=== PATIENT | female | born 1995 | race Caucasian/White ===

== ENCOUNTER 2021-05-30 17:26 | Emergency (ER) | payer SELFPAY ==
[2021-05-30 17:57] VITALS: PULSE 89; RESP 16; TEMP 36.9; O2SAT 100; BMI 32.9
--- NOTE | 2021-05-30 18:27 | ED.ABDPAIN ---
HPI - Abdominal Pain General Chief Complaint: Abdominal Pain Stated Complaint: Nausea Abd pain lower Rt Time Seen by Provider: 05/30/21 17:51 History of Present Illness HPI narrative: Patient is a 25-year-old healthy female who presents with right lower quadrant pain. It started around 2:00 p.m. this afternoon. It comes and goes seems to be isolated in the right lower quadrant. She denies any flank pain she has felt nauseous all day no actual vomiting. She has been able to eat without any issue she has not had any diarrhea or change in bowel movements. She denies any painful or frequent urination. She has some mild vaginal pruritus but no other abnormal vaginal discharge. No fever or chills. Prior history of ovarian cyst. Related Data Allergies Allergy/AdvReac Type Severity Reaction Status Date / Time P[place]LE Allergy Severe Anaphylaxis, Uncoded 05/16/17 11:45 burning and swelling in throat Latex Allergy Mild Acute Uncoded 05/16/17 11:45 Dermatitis Review of Systems Review of Systems Narrative: GENERAL: Denies chills, fatigue, malaise, fever, sweats, travel HEENT: Denies sinus pain, ear pain, sore throat, difficulty swallowing, neck pain RESPIRATORY: Denies dyspnea, cough, wheezing, hemoptysis, sputum. CARDIOVASCULAR: Denies chest pain, palpitations, orthopnea, edema GASTROINTESTINAL: See HPI : Denies dysuria, frequency, incontinence, hematuria, urinary retention, flank pain. MUSCULOSKELETAL: Denies weakness, joint pain, or bony pain SKIN: No rash, no erythema, no pruritus NEUROLOGIC: Denies weakness, dizziness, headache, numbness, change in speech, confusion PSYCHIATRIC: No concerning psychosocial issues. 12 point review of systems is negative except for those stated above and HPI Exam Initial Vital Signs Initial Vital Signs: Vital Signs Temperature 98.5 F 05/30/21 17:57 Pulse Rate 89 05/30/21 17:57 Respiratory Rate 16 05/30/21 17:57 Pulse Oximetry 100 05/30/21 17:57 GENERAL: Alert well-appearing 25-year-old female in no acute distress. HEENT: Head atraumatic,EOMI, pupils reactive, face symmetric, [moist] mucous membranes CARDIOVASCULAR: Regular rate and rhythm without murmurs, rubs or gallops. RESPIRATORY: Breath sounds equal bilaterally, no wheezes rales or rhonchi. ABDOMEN: Soft, mild right lower quadrant pain negative psoas sign no rust ring sign no McBurney point tenderness no Mata sign : No CVA tenderness EXTREMITIES: Normal range of motion, no clubbing or edema. Neurovascularly intact NEUROLOGICAL: Alert and oriented x4.Normal gait and speech. SKIN: Warm, dry, no laceration, no petechiae, no rashes or lesions. Course Orders Ordered: ED Orders 05/30/21 18:39 CT abdomen pelvis w con Stat 05/30/21 18:49 Complete Blood Count AUTO DIFF Stat Comprehensive Metabolic Panel Stat Lipase Stat Vital Signs Vital signs: Vital Signs - 8 hr 05/30/21 17:57 05/30/21 19:53 Temperature 98.5 F Pulse Rate 89 Respiratory Rate 16 Blood Pressure 109/63 Pulse Oximetry 100 MDM - Abdominal Pain Lab Data Result diagrams: 05/30/21 18:49 05/30/21 18:49 Labs: Lab Results 05/30/21 05/30/21 Range/Units 18:49 18:49 WBC 8.0 (4.5-11.0) X10^3/uL RBC 4.30 (4.0-5.2) X10^6/uL Hgb 12.3 (12.0-16.0) g/dL Hct 36.1 (36-46) % MCV 83.9 (80-100) fL MCH 28.6 (26-34) PG MCHC 34.1 (30-36) % RDW 14.0 (11.6-14.8) % Plt Count 341 (150-400) X10^3/uL Neut % (Auto) 69.0 (50-75) % Lymph % (Auto) 24.9 L (25-40) % Thayer % (Auto) 4.8 (3-14) % Eos % (Auto) 0.9 L (2-4) % Baso % (Auto) 0.4 (0-2) % Neut # (Auto) 5500 (2381-9584) /uL Lymph # (Auto) 2000 (0059-4998) /uL Thayer # (Auto) 400 (0-900) /uL Eos # (Auto) 100 (0-450) /uL Baso # (Auto) 0 (0-100) /uL Sodium 141 (137-145) mmol/L Potassium 3.7 (3.4-5.1) mmol/L Chloride 108 H (98-107) mmol/L Carbon Dioxide 24 (22-32) mmol/L BUN 14 (7-17) mg/dL Creatinine 0.77 (0.52-1.04) mg/dL Estimated GFR > 60 (>60) mL/min BUN/Creatinine Ratio 18.2 (6-22) Glucose 91 (70-100) mg/dL Calcium 9.1 (8.4-10.2) mg/dL Total Bilirubin 0.2 (0.2-1.3) mg/dL AST 27 (14-36) IU/L ALT 26 (<35) IU/L Alkaline Phosphatase 72 (38-126) U/L Total Protein 7.9 (6.3-8.2) g/dL Albumin 4.6 (3.5-5.0) g/dL Globulin 3.3 (1.7-4.1) g/dL Albumin/Globulin Ratio 1.4 (1.0-2.8) Lipase 57 (23-300) U/L Point of care testing: Point of Care Testing Test Results Negative Urine Dip Bedside Urine Glucose Negative Bedside Urine Bilirubin - Negative Bedside Urine Ketone - Negative Urine Specific [place] 1.015 Bedside Urine Occult Blood - Negative Bedside Urine pH 6.0 Bedside Urine Protein - Negative Bedside Urine Urobilinogen - Negative Bedside Urine Nitrite - Negative Bedside Urine Leukocytes - Negative Esterase Imaging Data CT scan - abdomen/pelvis: Radiologist's Impression: Signed Patient: Marielos Spicer MR#: [id number] : 1995 Acct:[id number] Age/Sex: 25 / F Date of Service: 05/30/21 Loc: ED Accession Number: [id number] ?? Procedure: CT abdomen pelvis w con Ordering Provider: Genesis Puente D.O. PROCEDURE:? CT ABDOMEN PELVIS W CON ? INDICATIONS:? Right lower quadrant pain ? TECHNIQUE:? After the administration of oral and IV contrast, axial sections were acquired from the lung bases to the pubic symphysis.? Coronal and sagittal reformats were performed.? For radiation dose reduction, the following was used:? automated exposure control, adjustment of mA and/or kV according to patient size. ? COMPARISON:? None. ? FINDINGS:? Image quality:? Excellent.? ? Lung bases:? Unremarkable.? ? Heart:? No significant findings. ? ? ABDOMEN: Liver:? Unremarkable.? ? Gallbladder:? Decompressed.? ? Biliary ducts:? Unremarkable.? ? Pancreas:? Unremarkable.? ? Spleen:? Unremarkable.? ? Adrenal Glands:? Unremarkable.? ? Kidneys and Ureters:? Unremarkable.? ? ? Stomach and Bowel:? Stomach, small bowel loops, and colon are unremarkable.? Normal appendix. Peritoneum:? No abnormal intraperitoneal fluid.? No free air.? ? Ventral Wall: ? No hernia.? Abdominal Nodes:? No retroperitoneal or mesenteric adenopathy by size criteria.? Vessels:? Aorta and inferior vena cava are normal in size.? ? PELVIS: Pelvic Organs:? Retroverted uterus.? ? Bladder:? Unremarkable.? ? Pelvic Nodes: No enlarged lymph nodes.? Miscellaneous: No inguinal hernias are seen. ? ? ? Bones:? No suspicious lesion. ? ? IMPRESSION:? Source of abdominal pain is not identified.? No free fluid.? Normal appendix.? ? ? Dictated by: Sukumar Ashford M.D. on 05/30/2021 at 19:30 ? ? MDM Narrative Medical decision making narrative: Patient does have some minimal lower right quadrant pain is limiting going on for a few hours. Blood work is overall reassuring. Discussed with her to CT now or conservatively watch and wait return if it worsens. At this time she chooses to do a CT now which is fortunately negative. No clear source of abdominal pain at this time. Recommend outpatient follow-up. And return if needed. Discharge Plan Departure Patient Disposition: Home Clinical Impression: Abdominal pain Instructions: DI for Abdominal Pain-Adult Activity Restrictions/Additional Instructions: *You have been diagnosed with abdominal pain *What to do: At this time no cause of abdominal pain is found. Please continue to monitor at home and return to the emergency department if it should worsen. *Continue to take medications as directed Tylenol 1000 mg every 6 hours for [id number] pain Ibuprofen 600 mg every 6 hours if needed for mild to moderate pain *Follow up with your primary care provider in 2-3 days or call [phone] *Return to ER if you should have increasing abdominal pain nausea vomiting fever or any new, worsening or concerning symptoms Referrals: Anatoliy Romero MD [Primary Care Provider] -
--- NOTE | 2021-05-30 18:39 | DI.CT.S_ITS ---
PROCEDURE: CT ABDOMEN PELVIS W CON INDICATIONS: Right lower quadrant pain TECHNIQUE: After the administration of oral and IV contrast, axial sections were acquired from the lung bases to the pubic symphysis. Coronal and sagittal reformats were performed. For radiation dose reduction, the following was used: automated exposure control, adjustment of mA and/or kV according to patient size. COMPARISON: None. FINDINGS: Image quality: Excellent. Lung bases: Unremarkable. Heart: No significant findings. ABDOMEN: Liver: Unremarkable. Gallbladder: Decompressed. Biliary ducts: Unremarkable. Pancreas: Unremarkable. Spleen: Unremarkable. Adrenal Glands: Unremarkable. Kidneys and Ureters: Unremarkable. Stomach and Bowel: Stomach, small bowel loops, and colon are unremarkable. Normal appendix. Peritoneum: No abnormal intraperitoneal fluid. No free air. Ventral Wall: No hernia. Abdominal Nodes: No retroperitoneal or mesenteric adenopathy by size criteria. Vessels: Aorta and inferior vena cava are normal in size. PELVIS: Pelvic Organs: Retroverted uterus. Bladder: Unremarkable. Pelvic Nodes: No enlarged lymph nodes. Miscellaneous: No inguinal hernias are seen. Bones: No suspicious lesion. IMPRESSION: Source of abdominal pain is not identified. No free fluid. Normal appendix. Dictated by: Sukumar Ashford M.D. on 05/30/2021 at 19:30 Approved by: Sukumar Ashford M.D. on 05/30/2021 at 19:33
[2021-05-30 18:58] LABS: Add Manual Diff / Slide Review NO; Basophils Absolute Auto 0 /uL (0-100); Basophils Percent Auto 0.4 % (0-2); Eosinophils Absolute Auto 100 /uL (0-450); Eosinophils Percent Auto 0.9 % (2-4); Hematocrit 36.1 % (36-46); Hemoglobin 12.3 g/dL (12.0-16.0); Lymphocytes Absolute Auto 2000 /uL (1100-4500); Lymphocytes Percent Auto 24.9 % (25-40); Mean Corpuscular HGB Conc 34.1 % (30-36); Mean Corpuscular Hemoglobin 28.6 PG (26-34); Mean Corpuscular Volume 83.9 fL (80-100); Monocytes Absolute Auto 400 /uL (0-900); Monocytes Percent Auto 4.8 % (3-14); Neutrophils Absolute Auto 5500 /uL (1500-7000); Platelet Count 341 X10^3/uL (150-400)
[2021-05-30 19:12] LABS: Albumin 4.6 g/dL (3.5-5.0); Albumin Globulin Ratio 1.4 (1.0-2.8); Alkaline Phosphatase 72 U/L (38-126); Aspartate Aminotransferase 27 IU/L (14-36); BUN Creatinine Ratio 18.2 (6-22); Bilirubin Total 0.2 mg/dL (0.2-1.3); Blood Urea Nitrogen 14 mg/dL (7-17); Calcium 9.1 mg/dL (8.4-10.2); Carbon Dioxide 24 mmol/L (22-32); Chloride 108 mmol/L (98-107); Estimated Glomerular Filt Rate > 60 mL/min (>60); Globulin 3.3 g/dL (1.7-4.1); Glucose 91 mg/dL (70-100); HEMOLYSIS < 15 (0-50); Lipase 57 U/L (23-300); Potassium 3.7 mmol/L (3.4-5.1); Sodium 141 mmol/L (137-145); Total Protein 7.9 g/dL (6.3-8.2)
[2021-05-30 19:27] LABS: Alanine Aminotransferase 26 IU/L (<35)
[2021-05-30 19:53] VITALS: BP 109/63
== END 2021-05-30 19:53 | disposition home or self-care (01) ==
PROVIDERS: Emergency Provider Emergency Medicine; Family Provider Pediatrics; PCP Pediatrics
DX: R10.31 Right lower quadrant pain (principal)
CPT/HCPCS: 36415; 74177; 80053; 81003; 81025; 83690; 85025; 99284

== ENCOUNTER → 2022-04-04 19:08 | Outpatient (CLI) | payer OTHER, SELFPAY | PROVIDERS: Visit Provider Physician Assistant | DX: J02.9 Acute pharyngitis, unspecified (principal) | CPT/HCPCS: 87070 ==